=== PATIENT | male | born 1960 | race African-American/Black ===

== ENCOUNTER 2017-06-26 03:29 | Emergency (ER) | payer MEDICAID ==
[~2017-06-26] VITALS: Ht 177.8 cm; Wt 72.0 kg
[2017-06-26 09:07] VITALS: BP 145/91
[2017-06-26 09:34] LABS: CLARITY URINE CLEAR (CLEAR); COLOR URINE YELLOW (YELLOW); KETONES URINE 1+ (NEGATIVE); LEUKOCYTE ESTERASE URINE NEGATIVE (NEGATIVE); NITRITE URINE NEGATIVE (NEGATIVE); OCCULT BLOOD URINE NEGATIVE (NEGATIVE); PH URINE 5.5 (4.5-8.0); PROTEIN URINE 1+ (NEGATIVE); SPECIFIC GRAVITY URINE 1.029 (1.005-1.030); UROBILINOGEN URINE 0.2 E.U./dL (0.2-1.0)
[2017-06-26 10:07] LABS: *AMPHETAMINES SCREEN URINE PRESUMTIVE POSITIVE (NEGATIVE); *BARBITURATES SCREEN URINE NEGATIVE (NEGATIVE)
[2017-06-26 10:08] LABS: *BENZODIAZEPINES SCREEN URINE NEGATIVE (NEGATIVE); *COCAINE SCREEN URINE NEGATIVE (NEGATIVE); CANNABINOID URINE SCREEN PRESUMTIVE POSITIVE (NEGATIVE); METHADONE URINE SCREEN NEGATIVE (NEGATIVE); OPIATES URINE SCREEN NEGATIVE (NEGATIVE); PHENCYCLIDINE URINE SCREEN NEGATIVE (NEGATIVE)
== END 2017-06-26 16:16 | disposition left against medical advice (07) ==
LOC: ER 03:29
DX: F15.129 Other stimulant abuse with intoxication, unspecified (principal); R45.851 Suicidal ideations; E11.65 Type 2 diabetes mellitus with hyperglycemia; I10 Essential (primary) hypertension; F12.10 Cannabis abuse, uncomplicated; Z79.4 Long term (current) use of insulin; Z85.79 Personal history of other malignant neoplasms of lymphoid, hematopoietic and related tissues
CPT/HCPCS: 80305; 81003; 82962; 99284; Z7610

== ENCOUNTER 2021-09-25 08:23 | Emergency (ER) | payer MEDICAID ==
[~2021-09-25] VITALS: Ht 175.3 cm; Wt 75.0 kg
[2021-09-25] MEDS ORDERED: MORPHINE SULFATE 4 MG/ML CPJ (NOT FOR IM USE) IV STA (09:04)
[2021-09-25 09:21] LABS: BASOPHILS % 0.5 % (0.0-2.0); EOSINOPHILS % 0.4 % (0.0-5.0); HEMATOCRIT. 33.2 % (42.0-52.0); HEMOGLOBIN. 11.1 g/dL (14.0-18.0); MEAN CORPUSCULAR HEMOGLOBIN 29.7 pg (28.0-32.0); MEAN PLATELET VOLUME 8.1 fl (7.4-10.4); MONOCYTES % 2.6 % (2.0-8.0); NEUTROPHILS % 83.5 % (40.0-76.0); PLATELET 347 x1000/uL (130-400); RED BLOOD CELL COUNT 3.73 mill/uL (4.7-6.1); RED CELL DISTRIBUTION WIDTH 17.1 % (11.6-14.6)
[2021-09-25 09:27] LABS: CHLORIDE 103 mEq/L (98-107)
[2021-09-25 09:35] LABS: CLARITY URINE CLEAR (CLEAR); COLOR URINE YELLOW (YELLOW); KETONES URINE TRACE (NEGATIVE); LEUKOCYTE ESTERASE URINE NEGATIVE (NEGATIVE); NITRITE URINE NEGATIVE (NEGATIVE); OCCULT BLOOD URINE NEGATIVE (NEGATIVE); PH URINE 5.5 (4.5-8.0); PROTEIN URINE TRACE (NEGATIVE); UROBILINOGEN URINE 0.2 E.U./dL (0.2-1.0)
[2021-09-25] MEDS ORDERED: KETOROLAC 30MG/ML VIAL IV ONE (09:45)
[2021-09-25] MEDS ORDERED: LACTULOSE 20G/30ML UDC PO ONE (10:45)
[2021-09-25] MEDS ORDERED: POLY17PO3 PO (10:47)
[2021-09-25 11:00] VITALS: BP 134/76
== END 2021-09-25 11:58 | disposition home or self-care (01) ==
LOC: ER 08:50
DX: R10.9 Unspecified abdominal pain (principal)
CPT/HCPCS: 36415; 74176; 80053; 81003; 84484; 85025; 93005; 96374; 96375; 99285; J1885; J2270